=== PATIENT | female | born 1990 | race Two or more races ===

== ENCOUNTER 2020-02-02 13:08 | Outpatient (REF) | payer OTHER, SELFPAY | END 2020-02-02 13:09 | disposition home or self-care (01) | LOC: HO.HMGCLDS 13:08 | PROVIDERS: Visit Provider Internal Medicine | DX: Z20.828 Contact with and (suspected) exposure to other viral communicable diseases (principal) | CPT/HCPCS: C9803; U0003 ==

== ENCOUNTER 2021-08-09 09:28 | Outpatient (REF) | payer OTHER, SELFPAY ==
[2021-08-09 10:03] LABS: COVID-19 Test Negative (Negative); IDNOW Serial# 08D9AD1C
== END 2021-08-09 09:29 | disposition home or self-care (01) ==
LOC: HO.LAB 09:28
PROVIDERS: Visit Provider Internal Medicine
DX: Z20.822 Contact with and (suspected) exposure to COVID-19 (principal)
CPT/HCPCS: 87635; C9803